=== PATIENT | female | born 1955 | race Caucasian/White ===

== ENCOUNTER 2021-06-21 09:45 | Emergency (ER) | payer MEDICARE ==
[~2021-06-21] VITALS: Ht 152.4 cm; Wt 130.0 kg
[~2021-06-21 09:45] MED LIST: AMIT50TA PO; AMOX1TAB61 PO; ASCO-72 PO; ASCO500T3 PO; ASPI325T8 PO; BUSP10TA PO; CHOL100013 PO; CHOL10003 PO; CHOL400T2 PO; CRAN1CAP2 PO; DIGO250T3 PO; DILT240T PO; DULO60CA7 PO; ENOX40DI SQ; ESOM40CA25 PO; FENO145T3 PO; FURO-68 PO; GABA600T7 PO; HUM100VI SQ; HYDR-2761 PO; INSU100C4 SQ; INSU100V37 SQ; INSU500V SQ; LIRA0.6P2 SQ; LISI20TA18 PO; METH10TA4 PO; METO50TA6 PO; MULT-208 PO; NAPR-514 PO; NIAC10002 PO; OMEP40CA7 PO; OXYC1TAB22 PO; POTA20TA4 PO; RIVA20TA2 PO; SIMV40TA18 PO; VENTOLIN HFA18 GM IH; WARF5TAB2 PO; WARF7.5T48 PO; [UNRECOGNIZED DRUG - REMARK] PO; lovenox SQ
[2021-06-21 10:09] VITALS: BP 149/65
[2021-06-21 10:39] LABS: BILIRUBIN,URINE NEGATIVE (NEG); CLARITY,URINE CLOUDY; COLOR,URINE ORANGE; NITRITE,URINE POSITIVE (NEG); PROTEIN,URINE 100 mg/dL (NEG-TRACE)
--- NOTE | 2021-06-21 10:40 | PHYS DOC ---
Past Medical History Past Medical History: A-Fib, Anxiety, Depression, Diabetes-Type II, DVT, GERD, High Cholesterol, Hypertension, Other Additional Past Medical Histor: PE Past Surgical History: Cholecystectomy, Hysterectomy, Tonsillectomy, Other Additional Past Surgical Histo: CATARACTS SURGERY Smoking Status: Never Smoker Alcohol Use: None Drug Use: None General Adult EDM: Chief Complaint: PAIN ON URINATION HPI: HPI: Patient is a 66 year old female who presents with begin having urinary frequency burning with urination, low mid cramping Wednesday. She states for the last 2 days she is taking Azo. She states she called her primary care on Wednesday but they were unable to get her into be seen. She denies fever, nausea, vomiting, diarrhea, chest pain, shortness of air, dizziness, headache, back pain, blood in her urine. Patient has a history of diabetes, depression, PE, DVT, anxiety, A. fib, high cholesterol, hypertension, GERD, hysterectomy, cataract surgery. Rates her discomfort a 5 out of 10 and states the cramping type discomfort. Review of Systems: Review of Systems: Constitutional: Denies fever or chills. [] Eyes: Denies change in visual acuity. [] HENT: Denies nasal congestion or sore throat. [] Respiratory: Denies cough or shortness of breath. [] Cardiovascular: Denies chest pain or edema. [] GI: + Low mid abdominal pain, denies nausea, vomiting, bloody stools or diarrhea. [] : + dysuria. [] Musculoskeletal: Denies back pain or joint pain. [] Integument: Denies rash. [] Neurologic: Denies headache, focal weakness or sensory changes. [] Endocrine: Denies polyuria or polydipsia. [] Lymphatic: Denies swollen glands. [] Psychiatric: Denies depression or anxiety. [] Heart Score: C/O Chest Pain: No Allergies: Allergies: Allergies Coded Allergies Type Severity Reaction Last Updated Verified codeine Allergy Intermediate "makes me mean" 07/04/15 No Physical Exam: PE: Constitutional: Well developed, well nourished, no acute distress, non-toxic appearance. [] HENT: Normocephalic, atraumatic, bilateral external ears normal, oropharynx moist, no oral exudates, nose normal. [] Eyes: PERRLA, EOMI, conjunctiva normal, no discharge. [] Neck: Normal range of motion, no tenderness, supple, no stridor. [] Cardiovascular:Heart rate regular rhythm, no murmur [] Lungs & Thorax: Bilateral breath sounds clear to auscultation [] Abdomen: Bowel sounds normal, soft, no tenderness, no masses, no pulsatile masses. [] Skin: Warm, dry, no erythema, no rash. [] Back: No tenderness, no CVA tenderness. [] Extremities: No tenderness, no cyanosis, no clubbing, ROM intact, no edema. [] Neurologic: Alert and oriented X 3, normal motor function, normal sensory function, no focal deficits noted. [] Psychologic: Affect normal, judgement normal, mood normal. [] Normal physical exam Current Patient Data: Vital Signs: Vital Signs Date Time Temp Pulse Resp B/P (MAP) Pulse Ox O2 Delivery O2 Flow Rate FiO2 06/21/21 10:09 98.2 73 20 149/65 (93) 97 Room Air 98.2 EKG: EKG: [] Radiology/Procedures: Radiology/Procedures: [] Course & Med Decision Making: Course & Med Decision Making Pertinent Labs and Imaging studies reviewed. (See chart for details) See HPI. Alert and oriented x4. Ambulatory steady gait. Speaks in full clear sentences. Abdomen soft and nontender. No CVA tenderness. Patient is taking Azo for the last 2 days and she is educated to no longer take Azo. Patient is concerned that her urine is an orange color and she is educated that the Azo will turn her urine orange. Afebrile and vital signs within normal limits. UTI present. Patient is receiving Rocephin 1 g IM. She will be discharged on Keflex antibiotic and follow-up with her primary care physician. [] Dragon Disclaimer: Teresita Disclaimer: This electronic medical record was generated, in whole or in part, using a voice recognition dictation system. Departure Departure Impression: Primary Impression: Urinary tract infection Qualified Codes: N39.0 - Urinary tract infection, site not specified; R31.9 - Hematuria, unspecified Disposition: HOME / SELF CARE / HOMELESS Condition: STABLE Referrals: MATILDE STOKES MD (PCP) Patient Instructions: Urinary Tract Infection Additional Instructions: Follow-up with your primary care provider as soon as possible. Drink plenty of water. Take Tylenol for pain. Take antibiotic with food and as prescribed. If you begin vomiting or running a high fever return to the emergency room. Do not use any more Azo as this can cause liver failure. Scripts Cephalexin (KEFLEX) 500 Mg Capsule 1 CAP PO TID, #30 CAP Prov: WALDO GORDON APRN 06/21/21 WALDO GORDON APRN Jun 21, 2021 10:40
[2021-06-21 11:03] LABS: BACTERIA,URINE MANY /HPF (0-FEW); WBC,URINE 20-40 /HPF (0-4)
[2021-06-21] MEDS ORDERED: cefTRIAXone IM 1 GM VIAL IM ONE (11:15)
[2021-06-21] MEDS ORDERED: CEPH500C PO (11:23)
== END 2021-06-21 11:43 | disposition home or self-care (01) ==
LOC: ER 09:45
DX: N39.0 Urinary tract infection, site not specified (principal); R31.9 Hematuria, unspecified; I48.91 Unspecified atrial fibrillation; F41.9 Anxiety disorder, unspecified; F32.9 Major depressive disorder, single episode, unspecified; E11.9 Type 2 diabetes mellitus without complications; Z86.718 Personal history of other venous thrombosis and embolism; K21.9 Gastro-esophageal reflux disease without esophagitis; E78.00 Pure hypercholesterolemia, unspecified; I10 Essential (primary) hypertension; Z90.49 Acquired absence of other specified parts of digestive tract; Z90.710 Acquired absence of both cervix and uterus; Z88.5 Allergy status to narcotic agent
CPT/HCPCS: 81001; 87086; 96372; 99283; J0696; 87077; 87186